=== PATIENT | male | born 1965 | race Two or more races ===

== ENCOUNTER 2018-10-30 18:41 | Emergency (ER) | payer OTHER ==
[2018-10-30 18:51] VITALS: BP 138/70; PULSE 95; RESP 16; TEMP 98.3; O2SAT 97
[2018-10-30] MEDS ORDERED: Emtricitabine-Tenofovir 200 mg-300 mg Tab PO STA (19:55)
[2018-10-30] MEDS ORDERED: Tetanus/Diphtheria Toxoids 0.5 ml Syringe IM ONE (19:55)
--- NOTE | 2018-10-30 21:48 | ED PDOC ---
HPI: Wound Care - HPI Time Seen by Provider: 10/30/18 19:23 Chief Complaint (Nursing): Needle Stick Chief Complaint (Provider): Needle Stick History Per: Patient Exam Limitations: no limitations Additional Complaint(s): 53 year old male with no significant past medical history presents to the ED with post status needle stick injury onset today. 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 Patient reports that he injured his left thumb with a needle puncture wound from the needle he was using in surgery. Patient reports that he removed his gloves and and scrubbed out. Patient states that he washed his hands again and scrubbed back in to do the procedure. Patient then came in to the ED for evaluation. The source patient is not sexually active, negative for HIV and has no history of hepatitis. PMD: None provided Past Medical History Reviewed: Historical Data Vital Signs: Last Vital Signs Temp 98.3 F 10/30/18 18:51 Pulse 95 H 10/30/18 18:51 Resp 16 10/30/18 18:51 BP 138/70 10/30/18 18:51 Pulse Ox 97 10/30/18 18:51 TAHIRA Report Viewed: Yes - Medical History PMH: No Chronic Diseases - Surgical History Surgical History: No Surg Hx - Family History Family History: States: No Known Family Hx - Allergies Allergies/Adverse Reactions: Allergies Allergy/AdvReac Type Severity Reaction Status Date / Time No Known Allergies Allergy Verified 10/30/18 18:57 Review of Systems ROS Statement: Except As Marked, All Systems Reviewed And Found Negative Musculoskeletal: Positive for: Other (left thumb needle stick puncture wound) Physical Exam - Reviewed Nursing Documentation Reviewed: Yes Vital Signs Reviewed: Yes - Physical Exam Appears: Positive for: Well Head Exam: Positive for: ATRAUMATIC, NORMOCEPHALIC Extremity: Positive for: Other (left thumb puncture injury.No active bleeding. ) - ECG O2 Sat by Pulse Oximetry: 97 (RA) Pulse Ox Interpretation: Normal Medical Decision Making Medical Decision Making: Time: 19:23 Initial Impression: 53 year old male with needle puncture wound in setting of OR procedure. Plan: -Amylase -Complete metabolic panel -Hepatitis B Surface AB -Hepatitis Panel -CBC with differenitals -Tetanus/Diphtheria Tox Adsorb -Dolutegravir Sodium 50 mg PO -Emtricitabine/tenofovir Diso 1 tab PO -ED obtain labs -Rapid plasma reagin -Urinalysis -HIV rapid -HIV 1&2 antibody -Post exposure prophylaxis -re-evaluation Patient has declined post exposure prophylaxis based on low risk injury and source patients negative history ------- Scribe Attestation: Documented by Kira Silverio, acting as a scribe for Maycol Hills MD Provider Scribe Attestation: All medical record entries made by the Scribe were at my direction and personally dictated by me. I have reviewed the chart and agree that the record accurately reflects my personal performance of the history, physical exam, medical decision making, and the department course for this patient. I have also personally directed, reviewed, and agree with the discharge instructions and disposition Disposition - Clinical Impression Clinical Impression: Needle stick injury - Disposition Disposition: Routine/Home Disposition Time: 20:00 Condition: STABLE Instructions: Post-Exposure Prophylaxis Forms: [employer] (Indonesian)
== END 2018-10-30 21:40 | disposition home or self-care (01) ==
LOC: H.ER 18:41
DX: S69.92XA Unspecified injury of left wrist, hand and finger(s), initial encounter (principal); W46.0XXA Contact with hypodermic needle, initial encounter; Y99.0 Civilian activity done for income or pay; Z77.21 Contact with and (suspected) exposure to potentially hazardous body fluids